=== PATIENT | male | born 1980 | race Caucasian/White ===

== ENCOUNTER 2018-11-23 20:44 | Emergency (ER) | payer SELFPAY ==
[~2018-11-23] VITALS: Ht 160 cm; Wt 76.3 kg
[2018-11-23 20:52] VITALS: BP 134/89
--- NOTE | 2018-11-23 21:39 | NUR ---
PT AMBULATED TO ED 09.
--- NOTE | 2018-11-23 21:52 | NUR ---
PT BIB SELF C/O OF CHEST PAIN W/ LEFT ARM AND HEAD PAIN. PT STATES INTERMITTENT CHEST PAIN X2 WEEKS THAT RADIATES TO HEAD AND LEFT ARM, WORSENS W/ EXERCISE. CLEAR SPEECH. AAOX4. HAND STRENGTH WNL, BL. DENIES N/V/D. DENIES SOB, TRAUMA OR LOC. PT IN GOWN IN BED; BED IN LOWER LOCKED POSITION. ER MD MADE AWARE OF PT STATUS. WILL CONTINUE TO MONITOR. PMH: HTN, DM, HYPERLIPIDEMIA RX: METFORMIN, (PT DOES NOT KNOW NAME OF OTHER MEDS)
[2018-11-23] MEDS ORDERED: KETOROLAC 60 MG/2 ML VIAL IM ONE (23:10)
[2018-11-23 23:30] VITALS: BP 118/81
--- NOTE | 2018-11-23 23:30 | NUR ---
Patient discharged with v/s stable. Written and verbal after care instructions given and explained. Patient verbalized understanding. Ambulatory with steady gait. All questions addressed prior to discharge. Advised to follow up with PMD. MEDICATION PRESCRIPTION MOTRIN WAS GIVEN
== END 2018-11-23 23:30 | disposition home or self-care (01) ==
LOC: MED 20:44
DX: R07.89 Other chest pain (principal); E11.9 Type 2 diabetes mellitus without complications; I10 Essential (primary) hypertension; E78.5 Hyperlipidemia, unspecified
CPT/HCPCS: 96372; 99283; J1885; 93005

== ENCOUNTER 2019-09-04 19:50 | Emergency (ER) | payer MEDICAID ==
[~2019-09-04] VITALS: Ht 167.6 cm; Wt 76.7 kg
[2019-09-04 20:05] VITALS: BP 127/75
--- NOTE | 2019-09-04 20:10 | NUR ---
PT AMBULATED TO THE LOBBY TO A/W FOR BED.
--- NOTE | 2019-09-04 23:29 | NUR ---
PT AMBULATED TO BED
--- NOTE | 2019-09-04 23:37 | NUR ---
39 YEAR OLD MALE COMPLAINS OF CONSTIPATION X 1 WEEK. PATIENT DENIES NAUSEA AND VOMITTING. PATIENT STATES STOMACH IS UNCOMFORTABLE BUT DENIES PAIN. BOWEL SOUNDS ACTIVE X4, NONTENDER ON PALPATION. PATIENT ALERT AND ORIENTED, BREATHING EVEN AND UNLABORED, SKIN WARM AND DRY. BED IN LOWEST POSITION, LOCKED, BED RAIL UPX1.
[2019-09-05] MEDS ORDERED: MAGNESIUM CITRATE 300 ML BTL PO ONE (00:20)
[2019-09-05 01:08] VITALS: BP 127/75
--- NOTE | 2019-09-05 01:09 | NUR ---
Patient discharged with last v/s stable by Dr Canchola. Written and verbal after care instructions given and explained by Dr Canchola. Patient alert, oriented and verbalized understanding of instructions. Ambulatory with steady gait. All questions addressed prior to discharge by Dr Canchola. ID band removed by Dr Canchola. Patient advised to follow up with PMD by Dr Canchola. Rx of [facility] Milk of Magnesia given by Dr Canchola. Patient educated on indication of medication including possible reaction and side effects by Dr Canchola. Opportunity to ask questions provided and answered by Dr Canchola.
== END 2019-09-05 01:09 | disposition home or self-care (01) ==
LOC: MED 19:50
DX: K59.00 Constipation, unspecified (principal); E78.5 Hyperlipidemia, unspecified; E11.9 Type 2 diabetes mellitus without complications; I10 Essential (primary) hypertension
CPT/HCPCS: 99282

== ENCOUNTER 2021-07-09 17:50 | Inpatient (IN) | payer MEDICAID, SELFPAY ==
[~2021-07-09] VITALS: Ht 165.1 cm; Wt 69.9 kg
[2021-07-09 17:55] VITALS: BP 130/95
--- NOTE | 2021-07-09 18:06 | NUR ---
PT TAKEN TO ER BED 7.
--- NOTE | 2021-07-09 18:12 | NUR ---
DR. DEJESUS AT PT BEDSIDE FOR FURTHER EVALUATION.
[2021-07-09] MEDS ORDERED: NITROGLYCERIN 0.4 MG TAB SL ONE (18:15)
[2021-07-09] MEDS ORDERED: ASPIRIN 81 MG TAB.CHEW PO ONE (18:15)
--- NOTE | 2021-07-09 18:33 | NUR ---
WELDING MACHINE OPERATOR GAS AT PT BEDSIDE.
--- NOTE | 2021-07-09 18:33 | NUR ---
PT C/O LEFT SIDED CHEST PAIN NON RADIATING AND HEADACHE X1 WEEK. HX OF HTN, DM PT HAS NOT TAKEN MEDICATIONS X5 MONTHS. NSR ON MONITOR. IV INSERTED TO RIGHT FA #[id number]
[2021-07-09 18:34] LABS: BASOPHILS % (AUTO) 0.8 % (0.0-2.0); EOSINOPHILS # (AUTO) 0.1 K/uL (0-0.4); EOSINOPHILS % (AUTO) 2.4 % (0.0-4.0); HEMOGLOBIN 14.8 g/dL (12.0-18.0); LYMPHOCYTES # (AUTO) 1.3 K/uL (2.0-11.5); LYMPHOCYTES % (AUTO) 24.6 % (20.5-51.1); MEAN CORPUSCULAR HEMOGLOBIN 28 pg (27-31); MEAN CORPUSCULAR HGB CONC 34 g/dL (33-37); MEAN CORPUSCULAR VOLUME 82.4 fL (80-94); MONOCYTES # (AUTO) 0.3 K/uL (0.8-1.0); MONOCYTES % (AUTO) 6.1 % (1.7-9.3); NEUTROPHILS # (AUTO) 3.4 K/uL (1.8-7.7); NEUTROPHILS % (AUTO) 66.1 % (42.2-75.2); PLATELET COUNT (AUTO) 209 K/uL (140-450); RED BLOOD CELL COUNT(AUTO) 5.35 MIL/uL (4.20-6.10); RED CELL DISTRIBUTION WIDTH 13.1 % (11.6-13.7); WHITE BLOOD COUNT (AUTO) 5.1 K/uL (4.8-10.8)
[2021-07-09] MEDS ORDERED: NACL 0.9% 1,000 ML IV ONE (18:35)
[2021-07-09 18:50] LABS: ALBUMIN 4.1 g/dL (3.4-5.0); ANION GAP 14.2 (8-16); CARBON DIOXIDE 26.7 mmol/L (21-32); POTASSIUM 3.9 mmol/L (3.5-5.1); TOTAL BILIRUBIN 0.3 mg/dL (0.0-1.0)
--- NOTE | 2021-07-09 19:16 | NUR ---
REPORT RECEIVED FROM KAMI SURESH FOR CONTINUITY OF PT CARE.
--- NOTE | 2021-07-09 19:16 | NUR ---
REPORT GIVEN TO RENATA MCCLURE
--- NOTE | 2021-07-09 20:19 | NUR ---
PT DENIES ANY ALLERGIES. PMH: DIABETES, HTN, HIGH CHOLESTEROL.
--- NOTE | 2021-07-09 20:19 | NUR ---
PT SITTING IN BED LOCKED IN LOWEST POSITION, X1 SIDERAIL UP. BREATHING EVEN AND UNLABORED. DENIES ANY CHEST PAIN, SOB OR OTHER SYMPTOMS AT THIS TIME. VSS. NAD NOTED, WILL CONTINUE TO MONITOR.
[2021-07-09] MEDS ORDERED: SODIUM PHOS / POTASSIUM PHOS 1 PKT PDR PO PRN (20:25)
[2021-07-09] MEDS ORDERED: ACETAMINOPHEN 325 MG TAB PO PRN (20:25)
[2021-07-09] MEDS ORDERED: MORPHINE SULFATE 2 MG/ML SYR IVP PRN (20:25)
[2021-07-09] MEDS ORDERED: LORazepam 2 MG/ML VIAL IM/IVP PRN (20:25)
[2021-07-09] MEDS ORDERED: DOCUSATE SODIUM 100 MG GELCAP PO PRN (20:25)
[2021-07-09] MEDS ORDERED: MAG SULF 2000 MG/WATER PREMIX 50 ML IV PRN (20:25)
[2021-07-09] MEDS ORDERED: HYDROcodone/APAP 5/325 MG 1 TAB TAB PO PRN (20:25)
[2021-07-09] MEDS ORDERED: POTASSIUM CHLORIDE 10 MEQ TABER PO PRN (20:25)
[2021-07-09] MEDS ORDERED: ZOLPIDEM 5 MG TAB PO PRN (20:25)
[2021-07-09] MEDS ORDERED: ONDANSETRON 4 MG/2 ML VIAL IVP PRN (20:25)
[2021-07-09 21:00] LABS: BILIRUBIN,URINE NEGATIVE (NEGATIVE); BLOOD, URINE TRACE-L (NEGATIVE); COLOR,URINE ORANGE (YELLOW); LEUKOCYTE ESTERASE ,URINE TRACE (NEGATIVE); NITRITE, URINE NEGATIVE (NEGATIVE); PH,URINE 5.5 (5.0-9.0); UGLUCOSE 3+ (NEGATIVE)
[2021-07-09 21:03] LABS: FREE T4 (FREE THYROXINE) 0.75 ng/dL (0.76-1.46); THYROID STIMULATING HORMONE 1.54 uIU/mL (0.34-3.74)
[2021-07-09 21:13] LABS: APPEARANCE,URINE HAZY (CLEAR)
[2021-07-09 21:14] LABS: BARBITURATE, URINE NEGATIVE ng/ml (NEG <=200); BENZODIAZEPINE, URINE NEGATIVE ng/mL (NEG <=200); CANNABINOID, URINE NEGATIVE ng/mL (NEG <=50); COCAINE, URINE NEGATIVE ng/mL (NEG <=300); OPIATE, URINE NEGATIVE ng/mL (NEG <=2000); PHENCYCLIDINE SCREEN,URINE NEGATIVE ng/mL (NEG <=25)
[2021-07-09 21:16] LABS: RBC,URINE 11-20 (MOD) /HPF (0-5); WBC,URINE 20-60 /HPF (0-5)
[2021-07-09 21:23] LABS: PROTHROMBIN TIME 10.1 secs (10.8-13.4)
[2021-07-09] MEDS: NACL 0.9% 1,000 ML IV SCH (21:58)
--- NOTE | 2021-07-09 22:33 | NUR ---
PT SITTING IN BED LOCKED IN LOWEST POSITION W X1 SIDERAIL UP. PT WATCHING VIDEOS ON PHONE. PT DENIES ANY PAIN, SOB, N/V OR OTHER SYMPTOMS. ALL NEEDS MET AT THIS TIME. BREATHING EVEN AND UNLABORED. VSS ON MONITOR. NAD NOTED , WILL CONTINUE TO MONITOR.
--- NOTE | 2021-07-10 00:06 | NUR ---
PT APPEARS TO BE RESTING W EYES CLOSED, SUPINE, HOB ELEVATED. BED LOCKED IN LOWEST POSITION, W X1 SIDERAILS UP. NS RUNNING AT 100NL/HR. VSS ON MONITOR. BREATHING EVEN AND UNLABORED. NAD NOTED, WILL CONTINUE TO MONITOR.
--- NOTE | 2021-07-10 02:54 | NUR ---
PT APPEARS TO BE RESTING W EYES CLOSED. SUPINE. VSS ON MONITOR. BREATHING EVEN AND UNLABORED. NAD NOTED, WILL CONTINUE TO MONITOR.
--- NOTE | 2021-07-10 05:00 | NUR ---
NO CHANGE IN PT STATUS AT THIS TIME. VSS
[2021-07-10 06:13] LABS: BASOPHILS % (AUTO) 0.7 % (0.0-2.0); EOSINOPHILS # (AUTO) 0.1 K/uL (0-0.4); EOSINOPHILS % (AUTO) 2.7 % (0.0-4.0); HEMATOCRIT 41.5 % (36-52); HEMOGLOBIN 13.7 g/dL (12.0-18.0); LYMPHOCYTES # (AUTO) 1.6 K/uL (2.0-11.5); LYMPHOCYTES % (AUTO) 30.9 % (20.5-51.1); MEAN CORPUSCULAR HEMOGLOBIN 28 pg (27-31); MEAN CORPUSCULAR HGB CONC 33 g/dL (33-37); MEAN CORPUSCULAR VOLUME 83.2 fL (80-94); MONOCYTES # (AUTO) 0.4 K/uL (0.8-1.0); MONOCYTES % (AUTO) 7.6 % (1.7-9.3); NEUTROPHILS # (AUTO) 3.1 K/uL (1.8-7.7); NEUTROPHILS % (AUTO) 58.1 % (42.2-75.2); PLATELET COUNT (AUTO) 182 K/uL (140-450); RED BLOOD CELL COUNT(AUTO) 4.98 MIL/uL (4.20-6.10); RED CELL DISTRIBUTION WIDTH 13.2 % (11.6-13.7); WHITE BLOOD COUNT (AUTO) 5.3 K/uL (4.8-10.8)
--- NOTE | 2021-07-10 07:18 | NUR ---
REPORT RECEIVED FROM KAMI YANEZ FOR TRANSFER OF CARE
--- NOTE | 2021-07-10 07:18 | NUR ---
Pt report given to KAMI YO AND ANEL LARA. Transfer of care at this time.
--- NOTE | 2021-07-10 07:44 | NUR ---
RECEIVE REPORT FROM PARKER TAM FROM ER.
--- NOTE | 2021-07-10 07:55 | NUR ---
Patient will be admitted to care of DR. NAVA. Admited to TELE. Will go to room 105A. Belongings list completed. Report to NAM MCCLURE. PATIENT TRASFERED VIA GURNEY TAKEN WITH KAMI YO.
--- NOTE | 2021-07-10 07:58 | NUR ---
PATIENT ARRIVE TO UNIT VIA GURNEY. PATIENT AWAKE AND ALERT. BREATHING EVEN AND UNLABORED. NO ABNORMAL HEART SOUND HEARD. LUNG SOUND ARE CLEAR. BOWEL SOUNDS HEARD IN ALL FOUR QUADRANTS. PATIENT DENIES PAIN AT THIS TIME. SKIN IS CLEAN, INTACT, AND WARM TO TOUCH. VS STABLE. EDUCATED PATIENT TO ROOM SURROUNDINGS. PATIENT VERBALIZE UNDERSTANDING. CALL LIGHT WITHIN REACH. ALL SAFETY MEASURES IN PLACE. WILL CONTINUE TO MONITOR.
[2021-07-10 08:00] VITALS: BP 112/74
--- NOTE | 2021-07-10 09:16 | NUR ---
PATIENT AWAKE AND ALERT. NO ACUTE DISTRESS NOTED. PATIENT DENIES PAIN AT THIS TIME. AT BEDSIDE. ALL SAFETY MEASURES IN PLACE. WILL CONTINUE TO MONITOR.
--- NOTE | 2021-07-10 11:11 | NUR ---
PATIENT SLEEPING. NO ACUTE DISTRESS NOTED. BREATHING EVEN AND UNLABORED. AT BEDSIDE. ALL SAFETY MEASURES IN PLACE. CALL LIGHT WITHIN REACH. WILL CONTINUE TO MONITOR.
[2021-07-10 12:00] VITALS: BP 112/71
[2021-07-10] MEDS: lisinopriL 5 MG TAB PO SCH (13:13)
[2021-07-10] MEDS: PANTOPRAZOLE 40 MG TABEC PO SCH (13:13)
[2021-07-10] MEDS: IBUPROFEN 600 MG TAB PO SCH ×2 (13:14→16:40)
--- NOTE | 2021-07-10 13:18 | NUR ---
PATIENT AWAKE AND ALERT. NO ACUTE DISTRESS NOTED. PATIENT DENIES PAIN AT THIS TIME. AT BEDSIDE. CALL LIGHT WITHIN REACH. ALL SAFETY MEASURES IN PLACE. WILL CONTINUE TO MONITOR.
--- NOTE | 2021-07-10 13:26 | NUR ---
DC PL[age] YRS OLD MALE PATIENT WAS ADMITTED FROM HOME WITH A DX OF TACHYCARDIA. PATIENT HAS A HX OF DM, HTN, AND HLD. EKG SHOWED NSR WITH DIFFUSE ST SEGMENT ELEVATIONS TROPONIN NEGATIVE X 2 . SEEN BY INSTRUMENT PANEL ASSEMBLER ORDERED ECHO AND CONTINUED HOME MEDS. DC PLAN TO GO HOME WHEN STABLE CM TO FOLLOW
[2021-07-10] MEDS: NACL 0.9% 1,000 ML IV SCH ×2 (14:30→16:25)
[2021-07-10] MEDS ORDERED: DEXTROSE 50% 50 ML SYR IVP PRN (14:55)
--- NOTE | 2021-07-10 15:05 | NUR ---
PATIENT AWAKE AND ALERT. NO ACUTE DISTRESS NOTED. PATIENT DENIES PAIN AT THIS TIME. CALL LIGHT WITHIN REACH. ALL SAFETY MEASURES IN PLACE. WILL CONTINUE TO MONITOR.
--- NOTE | 2021-07-10 15:09 | NUR ---
PATIENT HAS BEEN SCREENED AND CATEGORIZED MODERATE NUTRITION RISK. PATIENT WILL BE SEEN WITHIN 3-5 DAYS OF ADMISSION. 07/12/21 07/14/[address]
[2021-07-10 16:00] VITALS: BP 105/64
[2021-07-10] MEDS: INSULIN LISPRO SLIDING SCALE 100 UNITS/ML VIAL SUBQ PRN ×2 (16:58→21:13)
[2021-07-10] MEDS: BLOOD GLUCOSE MONITORING 1 DEV DEV FS SCH ×2 (16:58→21:04)
--- NOTE | 2021-07-10 19:15 | NUR ---
ENDORSED TO BLISTER PACKING MACHINE TENDER NURSE FOR CONTINUITY OF CARE. PATIENT STABLE.
--- NOTE | 2021-07-10 19:16 | NUR ---
RECEIVED ENDORSEMENT FROM MORNING SHIFT REGARDING PATIENT'S MAURICE. PATIENT IS STABLE. A&OX4. ABLE TO MAKE NEEDS KNOWN. DENIES PAIN 0/10. ON RA O2 SAT OF 97%. RESPIRATIONS EVEN AND UNLABORED. NO APPARENT S/SX OF ACUTE RESPIRATORY DISTRESS. PIER MASTER ASSISTANT SR. IV 18G ON RFA INTACT/PATENT WITH NS INFUSING AT 100 ML/HR. POC AND WHITE BOARD COMMUNICATION BOARD UPDATED. ALL SAFETY MEASURES IN PLACE. BED ON LOW/LOCK POSITION. CALL LIGHT WITHIN REACH. WILL CONTINUE TO MONITOR.
[2021-07-10 20:00] VITALS: BP 116/62
--- NOTE | 2021-07-10 20:00 | NUR ---
PATIENT WAS RECEIVED ALERT AND ORIENTED X 3-4, ABLE TO SPEAK HIS NEEDS, NO S/S OF DISTRESS AT THIS HARIS, DENIES ANY PAIN.
--- NOTE | 2021-07-10 21:20 | NUR ---
CHECKED PATIENT'S BLOOD SUGAR. INSULIN COVERAGE NEEDED PER MD ORDER. NO APPARENT S/SX OF ACUTE RESPIRATORY DISTRESS. PATIENT DENIES PAIN 0/10. ALL SAFETY MEASURES IN PLACE. CALL LIGHT WITHIN REACH. WILL CONTINUE TO MONITOR.
--- NOTE | 2021-07-10 21:59 | NUR ---
ALL DUE MEDICATIONS WERE GIVEN BY COMMERCIAL LIGHT FIXTURE ASSEMBLER, TOLERATED WELL BY THE PATIENT.
--- NOTE | 2021-07-10 23:20 | NUR ---
ROUNDED ON PATIENT. STABLE AND SLEEPING COMFORTABLY ON RIGHT SIDE. BREATHING SYMMETRICAL. NO APPARENT S/SX OF ACUTE RESPIRATORY DISTRESS. ALL SAFETY MEASURES IN PLACE. WILL CONTINUE TO MONITOR.
[2021-07-11] VITALS: BP 118/65
--- NOTE | 2021-07-11 | NUR ---
PATIENT WAS OBSERVED IN HIS BED ASLEEP, NO S/S OF DISTRESS.
--- NOTE | 2021-07-11 02:00 | NUR ---
PATIENT WAS OBSERVED IN HIS BED ASLEEP, NO S/S OF DISTRESS.
[2021-07-11] MEDS: NACL 0.9% 1,000 ML IV SCH (02:25)
--- NOTE | 2021-07-11 03:00 | NUR ---
CALL LIGHT WAS ON ATTENDED, PATIENT STATED HE CALLED FOR HIS ROOM MATE NEEDS, PATIENT WAS CALM AND AWAKE, NO DISTRESS, ROOM MATE WAS HELPED BY THE RN.
--- NOTE | 2021-07-11 03:20 | NUR ---
ROUNDED ON PATIENT. STABLE AND SLEEPING COMFORTABLY IN SUPINE POSITION. BREATHING SYMMETRICAL. NO APPARENT S/SX OF ACUTE RESPIRATORY DISTRESS. ALL SAFETY MEASURES IN PLACE. WILL CONTINUE TO MONITOR.
[2021-07-11 04:00] VITALS: BP 121/68
--- NOTE | 2021-07-11 05:20 | NUR ---
OUNDED ON PATIENT. STABLE AND SLEEPING COMFORTABLY IN SUPINE POSITION. BREATHING SYMMETRICAL. NO APPARENT S/SX OF ACUTE RESPIRATORY DISTRESS. ALL SAFETY MEASURES IN PLACE. WILL CONTINUE TO MONITOR.
[2021-07-11] MEDS: BLOOD GLUCOSE MONITORING 1 DEV DEV FS SCH ×2 (06:51→12:14)
--- NOTE | 2021-07-11 07:05 | NUR ---
ENDORSED PATIENT TO MORNING SHIFT REGARDING MAURICE. PATIENT IS STABLE.
[2021-07-11 07:09] LABS: BASOPHILS % (AUTO) 0.6 % (0.0-2.0); EOSINOPHILS # (AUTO) 0.2 K/uL (0-0.4); EOSINOPHILS % (AUTO) 3.7 % (0.0-4.0); HEMATOCRIT 42.2 % (36-52); HEMOGLOBIN 13.8 g/dL (12.0-18.0); LYMPHOCYTES # (AUTO) 1.2 K/uL (2.0-11.5); LYMPHOCYTES % (AUTO) 25.8 % (20.5-51.1); MEAN CORPUSCULAR HEMOGLOBIN 27 pg (27-31); MEAN CORPUSCULAR HGB CONC 33 g/dL (33-37); MEAN CORPUSCULAR VOLUME 83.6 fL (80-94); MONOCYTES # (AUTO) 0.4 K/uL (0.8-1.0); MONOCYTES % (AUTO) 9.5 % (1.7-9.3); NEUTROPHILS # (AUTO) 2.7 K/uL (1.8-7.7); NEUTROPHILS % (AUTO) 60.4 % (42.2-75.2); PLATELET COUNT (AUTO) 179 K/uL (140-450); RED BLOOD CELL COUNT(AUTO) 5.05 MIL/uL (4.20-6.10); RED CELL DISTRIBUTION WIDTH 13.4 % (11.6-13.7); WHITE BLOOD COUNT (AUTO) 4.5 K/uL (4.8-10.8)
[2021-07-11] MEDS: INSULIN LISPRO SLIDING SCALE 100 UNITS/ML VIAL SUBQ PRN ×2 (07:11→12:12)
--- NOTE | 2021-07-11 07:12 | NUR ---
PATIENT SLEEPING. BREATHING EVEN AND UNLABORED. NO ACUTE DISTRESS NOTED. CALL LIGHT WITH REACH. ALL SAFETY MEASURE IN PLACE. WILL CONTINUE TO MONITOR.
--- NOTE | 2021-07-11 07:52 | NUR ---
ALL REPORT WERE GIVEN TO INCOMING RN, TRANSFER FO CARE ENDORSED.
[2021-07-11 08:00] VITALS: BP 100/65
[2021-07-11] MEDS: IBUPROFEN 600 MG TAB PO SCH ×2 (08:16→11:59)
[2021-07-11] MEDS: PANTOPRAZOLE 40 MG TABEC PO SCH (08:39)
[2021-07-11] MEDS: lisinopriL 5 MG TAB PO SCH (08:40)
[2021-07-11] MEDS ORDERED: ATORVASTATIN 20 MG TAB PO SCH (09:00)
--- NOTE | 2021-07-11 09:10 | NUR ---
PATIENT IN BED ON PHONE. NO ACUTE DISTRESS NOTED. LISINOPRIL NOT GIVEN DUE TO PATIENT BP BEING 100/65. ALL OTHER SCHEDULED MEDICATIONS GIVEN. CALL LIGHT WITHIN REACH. ALL SAFETY MEASURES IN PLACE. WILL CONTINUE TO MONITOR.
[2021-07-11] MEDS ORDERED: ATOR20TA PO (10:11)
[2021-07-11] MEDS ORDERED: IBUP200C97 PO (10:11)
[2021-07-11] MEDS ORDERED: PANT40EC PO (10:11)
[2021-07-11] MEDS ORDERED: LISI5TAB18 PO (10:11)
--- NOTE | 2021-07-11 11:05 | NUR ---
PATIENT AWAKE AND ALERT. NO ACUTE DISTRESS NOTED. FAMILY MEMBER AT BEDSIDE. CALL LIGHT WITHIN REACH. ALL SAFETY MEASURES IN PLACE WILL CONTINUE TO MONITOR.
[2021-07-11 12:00] VITALS: BP 107/69
--- NOTE | 2021-07-11 13:10 | NUR ---
PATIENT AWAKE AND ALERT. NO ACUTE DISTRESS NOTED. FAMILY AT BEDSIDE. CALL LIGHT WITH REACH. ALL SAFETY MEASURES IN PLACE. WILL CONTINUE TO MONITOR
--- NOTE | 2021-07-11 14:00 | NUR ---
PATIENT AWAKE AND ALERT. NO ACUTE DISTRESS NOTED. VITAL SIGNS STABLE. AD BEDSIDE. PATIENT DISCHARGE INFORMATION GIVEN. PATIENT VERBALIZED UNDERSTANDING. PATIENT IV REMOVED IV CATHETER INTACT. PATIENT WRIST BAND REMOVED. PATIENT WHEELED TO FRONT LOBBY.
== END 2021-07-11 15:20 | DRG 207 ==
LOC: MED 17:50 → MTU 20:33
PROVIDERS: ADMIT Family Medicine; ATTEND Family Medicine
DX: I30.9 Acute pericarditis, unspecified (principal); E11.9 Type 2 diabetes mellitus without complications; N39.0 Urinary tract infection, site not specified; Z20.822 Contact with and (suspected) exposure to COVID-19; I10 Essential (primary) hypertension; E78.5 Hyperlipidemia, unspecified; Z91.14 Patient's other noncompliance with medication regimen
CPT/HCPCS: 36415; 71045; 80053; 80305; 81001; 82150; 83036; 83690; 83735; 83880; 84100; 84439; 84443; 84484; 85025; 85610; 85730; 87081; 87086; 93005; 99285; J0696; J7060; Q0092